=== PATIENT | male | born 1950 | race Caucasian/White ===

== ENCOUNTER 2024-02-02 00:37 | Emergency (ER) | payer OTHER ==
[2024-02-02 01:57] LABS: #Basophils 0.03 10x3/uL (0.0-0.2); #Eosinphils Less than 0.03 10x3/uL (0.0-0.7); %Basophils 0.3 % (0.0-1.0); %Eosinophils 0.1 % (0.0-10.0); %Lymphocytes 7.4 % (21.0-51.0); %Monocytes 6.6 % (0.0-10.0); %Neutrophils 85.3 % (42.0-75.0); Hematocrit 45.7 % (42.0-52.0); Hemoglobin 15.3 g/dL (14.0-18.0); Mean Corpuscular HGB CONC 33.5 g/dL (32.0-36.0); Mean Corpuscular Volume 101.6 fL (78.0-98.0); Mean Platelet Volume 10.3 fL (7.4-10.4); Platelet Count 200 10x3/uL (130-400); RBC Distribution Width 12.9 % (11.5-14.5)
[2024-02-02 02:50] LABS: ALT (SGPT) 18 U/L (8-55); AST (SGOT) 12 U/L (5-34); Albumin 4.3 g/dL (3.4-4.8); Alkaline Phosphatase 55 U/L (40-110); Anion Gap 13 mmol/L (10-20); BUN (Urea Nitrogen) 23 mg/dL (8.4-25.7); Bilirubin, Total 0.7 mg/dL (0.2-1.2); Calc. Creatinine Clearance 0 mL/min (70-130); Calcium 10.1 mg/dL (7.8-10.44); Carbon Dioxide 24 mmol/L (23-31); Chloride 108 mmol/L (98-107); Estimated GFR 42; Globulin 2.7 g/dL (2.4-3.5); Glucose 127 mg/dL (83-110); Lipase 24 U/L (8-78); Potassium 4.3 mmol/L (3.5-5.1); Sodium 141 mmol/L (136-145)
[2024-02-02] MEDS ORDERED: Ondansetron PF 4 MG/2 ML Vial ONE (03:51)
[2024-02-02] MEDS ORDERED: Morphine 4 MG/ML VIAL ONE ×2 (03:51→05:49)
[2024-02-02 06:19] LABS: Bacteria/HPF None Seen HPF (None Seen); Bilirubin Negative (Negative); Blood, Urine Negative (Negative); CAUTI Indications for Culture Pelvic or flank pain; Calcium Oxalate Crystals 3+ HPF (None Seen); Clarity Clear (Clear); Glucose, Urine (Dipstick) Normal (Negative); Ketone, Urine 10 mg/dL (Negative); Leukocyte 75 Leu/uL (Negative); Nitrite Negative (Negative); Protein, Urine (Dipstick) 20 mg/dL (Neg-Trace); Specific Gravity, Urine 1.026 (1.002-1.036); Squamous Epithelial None Seen HPF (0-3); Urobilinogen Normal mg/dL (Less than 2); pH, Urine 5.5 (5.0-9.0)
[2024-02-02 06:20] LABS: Urine Culture Reflex Yes Yes
[2024-02-02 06:31] LABS: Troponin I Less than 0.010 ng/mL (< 0.028)
[2024-02-02] MEDS ORDERED: Sodium Chloride 0.9% 100 ML ONE (06:46)
[2024-02-02] MEDS ORDERED: cefTRIAXone (ROCEPHIN) 2 GM VIAL ONE (06:46)
[2024-02-02] MEDS ORDERED: Iopamidol 370 76% 100 ML VIAL ONE (15:10)
== END 2024-02-02 08:35 | disposition home or self-care (01) ==
LOC: ERS 00:37
DX: N13.2 Hydronephrosis with renal and ureteral calculous obstruction (principal); I25.10 Atherosclerotic heart disease of native coronary artery without angina pectoris; N39.0 Urinary tract infection, site not specified
CPT/HCPCS: 36415; 36416; 74177; 80053; 81001; 83605; 83690; 84484; 85025; 87077; 87086; 93005; 96374; 96375; 96376; J0696; J2270; J2405; J3490; Q9967

== ENCOUNTER 2024-05-31 12:54 | Outpatient (CLI) | payer MEDICARE ==
[2024-05-31 14:05] LABS: #Basophils 0.05 10x3/uL (0.0-0.2); %Basophils 0.8 % (0.0-1.0); %Eosinophils 2.9 % (0.0-10.0); %Lymphocytes 27.4 % (21.0-51.0); %Monocytes 9.3 % (0.0-10.0); %Neutrophils 59.4 % (42.0-75.0); Hemoglobin 14.9 g/dL (14.0-18.0); Mean Corpuscular HGB CONC 33.9 g/dL (32.0-36.0); Mean Corpuscular Hemoglobin 33.6 pg (27.0-31.0); Mean Corpuscular Volume 99.3 fL (78.0-98.0); Mean Platelet Volume 9.8 fL (7.4-10.4); Platelet Count 191 10x3/uL (130-400); RBC Distribution Width 13.1 % (11.5-14.5); Red Blood Cell (RBC) Count 4.43 mill/uL (4.70-6.10)
[2024-05-31 14:28] LABS: ALT (SGPT) 23 U/L (8-55); AST (SGOT) 19 U/L (5-34); Albumin 4.2 g/dL (3.4-4.8); Alkaline Phosphatase 59 U/L (40-110); Anion Gap 9 mmol/L (10-20); BUN (Urea Nitrogen) 18 mg/dL (8.4-25.7); Bilirubin, Total 0.5 mg/dL (0.2-1.2); Calc. Creatinine Clearance 0 mL/min (70-130); Carbon Dioxide 26 mmol/L (23-31); Chloride 107 mmol/L (98-107); Estimated GFR 72; Globulin 2.8 g/dL (2.4-3.5); Glucose 93 mg/dL (83-110); Potassium 4.4 mmol/L (3.5-5.1); Sodium 138 mmol/L (136-145)
== END 2024-05-31 12:55 | disposition home or self-care (01) ==
LOC: LABBT 12:54
PROVIDERS: ATTEND Internal Medicine Cardiovascular Disease
DX: Z01.812 Encounter for preprocedural laboratory examination (principal); I25.10 Atherosclerotic heart disease of native coronary artery without angina pectoris
CPT/HCPCS: 80053; 85025

== ENCOUNTER 2024-06-07 05:40 | Inpatient (IN) | payer MEDICARE ==
[2024-06-07] MEDS ORDERED: fentaNYL 50 mcg/mL 1 mL Vial ONE (06:14)
[2024-06-07] MEDS ORDERED: Midazolam HCl 2 mg/2 ml Vial ONE (06:15)
[2024-06-07] MEDS ORDERED: Adenosine 6 mg (2 mL) VIAL ONE (06:15)
[2024-06-07] MEDS ORDERED: Nitroglycerin 50 MG/250 ML BOT 250 ML ONE (06:15)
[2024-06-07] MEDS ORDERED: Heparin 10,000 UNITS/ 10 ML VIAL ONE (06:15)
[2024-06-07] MEDS ORDERED: Verapamil 5 MG/2 ML VIAL ONE (06:15)
[2024-06-07] MEDS ORDERED: Communication Order-Pharmacy FS SCH (08:32)
[2024-06-07 12:12] LABS: #Basophils 0.03 10x3/uL (0.0-0.2); %Basophils 0.5 % (0.0-1.0); %Eosinophils 1.5 % (0.0-10.0); %Monocytes 7.7 % (0.0-10.0); Hematocrit 44.3 % (42.0-52.0); Hemoglobin 14.7 g/dL (14.0-18.0); Mean Corpuscular HGB CONC 33.2 g/dL (32.0-36.0); Mean Corpuscular Hemoglobin 33.3 pg (27.0-31.0); Mean Corpuscular Volume 100.5 fL (78.0-98.0); Mean Platelet Volume 9.8 fL (7.4-10.4); Platelet Count 170 10x3/uL (130-400); RBC Distribution Width 13.1 % (11.5-14.5); Red Blood Cell (RBC) Count 4.41 mill/uL (4.70-6.10)
[2024-06-07 12:26] LABS: Anion Gap 10 mmol/L (10-20); BUN (Urea Nitrogen) 16 mg/dL (8.4-25.7); Calc. Creatinine Clearance 78 mL/min (70-130); Calcium 9.1 mg/dL (7.8-10.44); Carbon Dioxide 24 mmol/L (23-31); Chloride 108 mmol/L (98-107); Estimated GFR 85; Glucose 87 mg/dL (83-110); Potassium 3.9 mmol/L (3.5-5.1); Sodium 138 mmol/L (136-145)
[2024-06-07 12:27] LABS: INR-International Normal Ratio 1.1; Prothrombin Time 13.8 sec (12.0-14.7)
[2024-06-07 12:37] LABS: Hemoglobin A1c 5.2 % (4.0-6.0)
[2024-06-07] MEDS: Carvedilol 3.125 MG TAB PO SCH (17:16)
[2024-06-08] MEDS ORDERED: CABG-Clindamycin/D5W 900 MG in Premix 1 BAG IVPB SCH (00:01)
[2024-06-08 04:43] LABS: ALT (SGPT) 17 U/L (8-55); AST (SGOT) 14 U/L (5-34); Albumin 3.7 g/dL (3.4-4.8); Alkaline Phosphatase 53 U/L (40-110); Anion Gap 10 mmol/L (10-20); BUN (Urea Nitrogen) 15 mg/dL (8.4-25.7); Bilirubin, Total 0.6 mg/dL (0.2-1.2); Calc. Creatinine Clearance 64 mL/min (70-130); Calcium 8.6 mg/dL (7.8-10.44); Carbon Dioxide 25 mmol/L (23-31); Cardiac Risk 4.6 (Less than 4.5); Chloride 108 mmol/L (98-107); Cholesterol 185 mg/dl (< 200 Desired); Estimated GFR 66; Globulin 2.4 g/dL (2.4-3.5); Glucose 96 mg/dL (83-110); HDL Cholesterol 40 mg/dL (>60 Neg Risk); LDL Cholesterol, Calculated 128 mg/dL; Potassium 4.2 mmol/L (3.5-5.1); Protein, Total 6.1 g/dL (5.8-8.1); Sodium 139 mmol/L (136-145); Triglycerides 83 mg/dL (Less than 150)
[2024-06-08] MEDS ORDERED: Lidocaine 1% MPF 2 ML VIAL ONE (05:49)
[2024-06-08] MEDS ORDERED: PHENYLEPHRINE-NS 100 MCG/ML 10 ML SYRINGE ONE ×2 (06:29→12:19)
[2024-06-08] MEDS ORDERED: Bupivacaine PF 0.5% 30 ML VIAL ONE (06:29)
[2024-06-08] MEDS ORDERED: Albumin 5% 500 ML ONE (06:29)
[2024-06-08] MEDS ORDERED: EPINEPHrine 1 MG/ML VIAL ONE ×2 (06:29→10:24)
[2024-06-08] MEDS ORDERED: Dexamethasone 4 mg/ml Vial ONE (06:29)
[2024-06-08] MEDS ORDERED: Heparin 10,000 UNITS/1 ML VIAL 30,000 UNITS in Sodium Chloride 0.9% 1,000 ML FS SCH (06:45)
[2024-06-08] MEDS ORDERED: Vecuronium 10 MG VIAL ONE (06:47)
[2024-06-08] MEDS ORDERED: fentaNYL PF 100 MCG/2 ML SYRINGE ONE (06:50)
[2024-06-08] MEDS ORDERED: PROPOFOL 20 ML ONE (06:50)
[2024-06-08] MEDS ORDERED: Midazolam HCl 2 mg/2 ml Vial ONE (06:51)
[2024-06-08] MEDS ORDERED: Clindamycin/D5W 900 mg/50 ml Premix Bag ONE (07:18)
[2024-06-08] MEDS ORDERED: Thrombin 5000 UNITS/5 ML VIAL ONE (07:40)
[2024-06-08] MEDS ORDERED: Magnesium 5 GM/10 ML Abboject SYRINGE ONE (07:40)
[2024-06-08] MEDS ORDERED: Heparin 5,000 UNITS/ML VIAL ONE (07:40)
[2024-06-08] MEDS ORDERED: Sodium Bicarb 50 mEq/50 ML VIAL ONE (07:40)
[2024-06-08] MEDS ORDERED: Cardioplegic Soln 1,000 ML BAG ONE (07:40)
[2024-06-08] MEDS ORDERED: Protamine Sulfate 250 MG/25 ML VIAL ONE (07:40)
[2024-06-08] MEDS ORDERED: Potassium Chloride 60 mEq (30 mL) VIAL ONE (07:40)
[2024-06-08] MEDS ORDERED: Mannitol 12.5 GM/50 ML ONE (07:40)
[2024-06-08] MEDS ORDERED: Vancomycin 1 GM VIAL ONE (07:40)
[2024-06-08] MEDS ORDERED: Aminocaproic Acid 5 GM/20 ML VIAL ONE (07:40)
[2024-06-08] MEDS ORDERED: Heparin 30,000 units/30 ml VIAL ONE (07:40)
[2024-06-08] MEDS ORDERED: Calcium Chloride 1 GM/10 ML Abboject SYRINGE ONE (07:40)
[2024-06-08] MEDS ORDERED: Lidocaine 2% PF 100 mg/5 ml Syringe ONE (07:40)
[2024-06-08] MEDS ORDERED: Milrinone 10 MG/10 ML VIAL ONE (08:40)
[2024-06-08] MEDS ORDERED: Papaverine 60 MG/2 ML VIAL ONE (09:06)
[2024-06-08] MEDS ORDERED: Rocuronium Bromide 10 MG/ML (10ML VIAL) ONE (09:55)
[2024-06-08] MEDS ORDERED: Bisacodyl 10 MG SUPP PR PRN (12:12)
[2024-06-08] MEDS ORDERED: NOREPINEPHRINE 8 MG/250 ML-D5W 250 ML IVPB PRN (12:12)
[2024-06-08] MEDS ORDERED: Promethazine HCl 25 MG/ML VIAL IM PRN (12:12)
[2024-06-08] MEDS ORDERED: Nitroglycerin 50 MG/250 ML BOT 250 ML IVPB PRN (12:12)
[2024-06-08] MEDS ORDERED: Potassium Chloride 20 MEQ (100 mL) BAG IVPB PRN (12:12)
[2024-06-08] MEDS ORDERED: Mag-Al 1200 mg/1200 mg/30 ML UDCUP PO PRN (12:12)
[2024-06-08] MEDS ORDERED: Acetaminophen 325 MG TAB PO PRN (12:12)
[2024-06-08] MEDS ORDERED: traMADol HCl 50 MG TAB PO PRN (12:12)
[2024-06-08] MEDS ORDERED: niCARdipine 25 MG in Sodium Chloride 0.9% 250 ML 250 ML IVPB PRN (12:12)
[2024-06-08] MEDS ORDERED: hydrALAZINE 20 MG/ML VIAL SLOW IVP PRN (12:12)
[2024-06-08] MEDS ORDERED: EPINEPHrine 4 MG in Dextrose 5% in Water 250 ML IV SCH (12:15)
[2024-06-08 12:58] LABS: Actual Bicarbonate (HCO3a) 17.4 mEq/L (22-28); Base Excess (BEa) -7.7 mEq/L (-2.0 to +3.0); CO2 Tension 33.8 mmHg (35.0-45.0); Calcium, Ionized (arterial) 1.05 mmol/L (1.12-1.30); Carboxyhemoglobin (COHb) 0.3 gm% (0.0-3.0); Hematocrit-ABG 34 % (42.0-52.0); Hemoglobin (Hb) 11.7 g/dL (14.0-18.0); O2 Tension (PaO2), arterial 222.6 mmHg (> 70.0); Potassium - ABG Lab 4.22 mmol/L (3.70-5.30); pH, Arterial 7.329 (7.35-7.45)
[2024-06-08] MEDS ORDERED: Dextrose 50% Abboject 50 ML SYRINGE SLOW IVP PRN (13:00)
[2024-06-08] MEDS ORDERED: Glucagon 1 MG/ML KIT SC PRN (13:00)
[2024-06-08] MEDS ORDERED: Insulin Reg, Human 100 UNITS in Sodium Chloride 0.9% 100 ML IVPB SCH (13:00)
[2024-06-08] MEDS ORDERED: INSULIN REGULAR IN 0.9 % NACL 100 UNITS in Premix 1 BAG IVPB SCH (13:00)
[2024-06-08] MEDS ORDERED: Dextrose 5% in Water 1,000 ML IV PRN (13:00)
[2024-06-08 13:01] LABS: Puncture Site ARTLINE
[2024-06-08] MEDS: Morphine 4 MG/ML VIAL ONE (13:14)
[2024-06-08] MEDS: Insulin Regular, Human 100 UNIT/ML 10 ML VIAL SC PRN (13:27)
[2024-06-08] MEDS: Magnesium 2 GM/50 ML(in water) 2 GM in Premix 1 BAG IVPB SCH (13:28)
[2024-06-08] MEDS: NS 0.9% w/ 20 MEQ KCL 1,000 ML IV SCH (13:28)
[2024-06-08 13:37] LABS: Anion Gap 12 mmol/L (10-20); BUN (Urea Nitrogen) 14 mg/dL (8.4-25.7); Calc. Creatinine Clearance 81 mL/min (70-130); Calcium 7.9 mg/dL (7.8-10.44); Carbon Dioxide 16 mmol/L (23-31); Chloride 114 mmol/L (98-107); Estimated GFR 88; Glucose 164 mg/dL (83-110); Potassium 4.6 mmol/L (3.5-5.1); Sodium 137 mmol/L (136-145)
[2024-06-08] MEDS: Post-Op Insulin Drip Protocol IVPB ONE (13:47)
[2024-06-08 13:49] LABS: PTT 31.9 sec (22.9-36.1)
[2024-06-08 13:53] LABS: INR-International Normal Ratio 1.5; Prothrombin Time 18.1 sec (12.0-14.7)
[2024-06-08 13:58] LABS: #Basophils 0.04 10x3/uL (0.0-0.2); %Basophils 0.2 % (0.0-1.0); %Eosinophils 0.3 % (0.0-10.0); %Lymphocytes 9.6 % (21.0-51.0); %Monocytes 8.7 % (0.0-10.0); %Neutrophils 80.6 % (42.0-75.0); Hematocrit 35.1 % (42.0-52.0); Hemoglobin 11.9 g/dL (14.0-18.0); Mean Corpuscular HGB CONC 33.9 g/dL (32.0-36.0); Mean Corpuscular Hemoglobin 33.4 pg (27.0-31.0); Mean Corpuscular Volume 98.6 fL (78.0-98.0); Mean Platelet Volume 10.3 fL (7.4-10.4); Platelet Count 156 10x3/uL (130-400); RBC Distribution Width 12.9 % (11.5-14.5); Red Blood Cell (RBC) Count 3.56 mill/uL (4.70-6.10)
[2024-06-08] MEDS: Ipratropium/Albuterol 3 ML NEB NEB SCH (14:32)
[2024-06-08] MEDS: Sodium Bicarb 50 MEQ/50 ML Abboject 8.4% SYRINGE ONE (14:45)
[2024-06-08] MEDS: Albumin 5% 12.5 GM (250 mL) BOT IVPB PRN ×2 (14:46→22:20)
[2024-06-08] MEDS: Clindamycin/D5W 900 MG in Premix 1 BAG IVPB SCH (14:53)
[2024-06-08] MEDS: Sodium Bicarb 50 MEQ/50 ML Abboject 8.4% SYRINGE IVP SCH (15:08)
[2024-06-08 16:07] LABS: Actual Bicarbonate (HCO3a) 21.3 mEq/L (22-28); CO2 Tension 39.5 mmHg (35.0-45.0); Calcium, Ionized (arterial) 1.07 mmol/L (1.12-1.30); Carboxyhemoglobin (COHb) 0.2 gm% (0.0-3.0); Hematocrit-ABG 31 % (42.0-52.0); Hemoglobin (Hb) 10.5 g/dL (14.0-18.0); O2 Tension (PaO2), arterial 87.3 mmHg (> 70.0); Potassium - ABG Lab 4.08 mmol/L (3.70-5.30); pH, Arterial 7.349 (7.35-7.45)
[2024-06-08] MEDS: traMADol HCl 50 MG TAB PO PRN (16:24)
[2024-06-08] MEDS: Morphine 2 MG/ML VIAL SLOW IVP PRN (17:05)
[2024-06-08] MEDS: fentaNYL 50 mcg/mL 1 mL Vial SLOW IVP PRN ×2 (18:51→20:41)
[2024-06-08 19:33] LABS: Hematocrit 28.6 % (42.0-52.0); Hemoglobin 9.7 g/dL (14.0-18.0)
[2024-06-08 19:41] LABS: Potassium 4.1 mmol/L (3.5-5.1)
[2024-06-08] MEDS: Atorvastatin Calcium 20 MG TAB PO SCH (20:41)
[2024-06-08] MEDS: Famotidine/PF 20 mg/2ml Vial SLOW IVP SCH (20:41)
[2024-06-08] MEDS: Ondansetron PF 4 MG/2 ML Vial IVP PRN (21:48)
[2024-06-09] MEDS: Albumin 5% 12.5 GM (250 mL) BOT IVPB SCH (00:40)
[2024-06-09 03:12] LABS: #Basophils Less than 0.03 10x3/uL (0.0-0.2); #Eosinophils Less than 0.03 10x3/uL (0.0-0.7); %Lymphocytes 5.4 % (21.0-51.0); %Monocytes 10.1 % (0.0-10.0); %Neutrophils 84.3 % (42.0-75.0); Hematocrit 24.1 % (42.0-52.0); Hemoglobin 8.1 g/dL (14.0-18.0); Mean Corpuscular HGB CONC 33.6 g/dL (32.0-36.0); Mean Corpuscular Volume 101.3 fL (78.0-98.0); Mean Platelet Volume 10.2 fL (7.4-10.4); Platelet Count 131 10x3/uL (130-400); RBC Distribution Width 13.2 % (11.5-14.5); Red Blood Cell (RBC) Count 2.38 mill/uL (4.70-6.10)
[2024-06-09 03:22] LABS: Anion Gap 11 mmol/L (10-20); BUN (Urea Nitrogen) 17 mg/dL (8.4-25.7); Calc. Creatinine Clearance 85 mL/min (70-130); Calcium 7.4 mg/dL (7.8-10.44); Carbon Dioxide 21 mmol/L (23-31); Chloride 112 mmol/L (98-107); Estimated GFR 90; Glucose 119 mg/dL (83-110); Magnesium 2.2 mg/dL (1.6-2.6); Sodium 140 mmol/L (136-145)
[2024-06-09 03:23] LABS: INR-International Normal Ratio 1.5; PTT 35.4 sec (22.9-36.1); Prothrombin Time 18.2 sec (12.0-14.7)
[2024-06-09 03:58] LABS: Phosphorus 2.6 mg/dL (2.3-4.7)
[2024-06-09 04:01] LABS: ALT (SGPT) 11 U/L (8-55); AST (SGOT) 21 U/L (5-34); Albumin 3.9 g/dL (3.4-4.8); Alkaline Phosphatase 27 U/L (40-110); Bilirubin, Direct 0.5 mg/dL (0.1-0.3); Bilirubin, Total 1.2 mg/dL (0.2-1.2); Protein, Total 1.2 g/dL (5.8-8.1)
[2024-06-09 07:57] LABS: ALV-art Gradient 148.525 mmHg (0-20); Puncture Site Arterial Line
[2024-06-09] MEDS: Aspirin Chewable 81 MG TAB PO SCH (09:16)
[2024-06-09] MEDS: Magnesium 2 GM/50 ML(in water) 2 GM in Premix 1 BAG IVPB SCH (09:17)
[2024-06-09 12:07] LABS: #Basophils Less than 0.03 10x3/uL (0.0-0.2); #Eosinophils Less than 0.03 10x3/uL (0.0-0.7); %Basophils 0.1 % (0.0-1.0); %Lymphocytes 4.9 % (21.0-51.0); %Neutrophils 84.5 % (42.0-75.0); Hematocrit 31.2 % (42.0-52.0); Hemoglobin 10.5 g/dL (14.0-18.0); Mean Corpuscular HGB CONC 33.7 g/dL (32.0-36.0); Mean Corpuscular Volume 98.1 fL (78.0-98.0); Mean Platelet Volume 10.2 fL (7.4-10.4); Platelet Count 155 10x3/uL (130-400); RBC Distribution Width 14.4 % (11.5-14.5); Red Blood Cell (RBC) Count 3.18 mill/uL (4.70-6.10)
[2024-06-09] MEDS ORDERED: Insulin Glargine 30 UNITS/0.3 ML VIAL SC PRN (12:46)
[2024-06-09 13:09] LABS: Anion Gap 12 mmol/L (10-20); BUN (Urea Nitrogen) 21 mg/dL (8.4-25.7); Calc. Creatinine Clearance 84 mL/min (70-130); Calcium 7.9 mg/dL (7.8-10.44); Carbon Dioxide 19 mmol/L (23-31); Chloride 109 mmol/L (98-107); Estimated GFR 83; Glucose 126 mg/dL (83-110); Potassium 4.1 mmol/L (3.5-5.1); Sodium 136 mmol/L (136-145)
[2024-06-09] MEDS: Guaifenesin DM 100-10/5 ML UDCUP PO PRN (20:29)
[2024-06-10 04:57] LABS: Anion Gap 11 mmol/L (10-20); BUN (Urea Nitrogen) 26 mg/dL (8.4-25.7); Calc. Creatinine Clearance 83 mL/min (70-130); Calcium 8.2 mg/dL (7.8-10.44); Carbon Dioxide 22 mmol/L (23-31); Chloride 104 mmol/L (98-107); Estimated GFR 82; Glucose 123 mg/dL (83-110); Magnesium 2.6 mg/dL (1.6-2.6); Potassium 4.1 mmol/L (3.5-5.1); Sodium 133 mmol/L (136-145)
[2024-06-10 05:10] LABS: #Basophils Less than 0.03 10x3/uL (0.0-0.2); #Eosinophils Less than 0.03 10x3/uL (0.0-0.7); %Basophils 0.1 % (0.0-1.0); %Lymphocytes 5.7 % (21.0-51.0); %Monocytes 9.2 % (0.0-10.0); %Neutrophils 84.2 % (42.0-75.0); Hematocrit 28.5 % (42.0-52.0); Hemoglobin 9.7 g/dL (14.0-18.0); Mean Corpuscular Hemoglobin 33.4 pg (27.0-31.0); Mean Corpuscular Volume 98.3 fL (78.0-98.0); Mean Platelet Volume 10.4 fL (7.4-10.4); Platelet Count 139 10x3/uL (130-400); RBC Distribution Width 14.5 % (11.5-14.5)
[2024-06-10] MEDS ORDERED: Iopamidol 370 76% 100 ML VIAL ONE (11:12)
[2024-06-10] MEDS: Furosemide 40 MG (4 mL) VIAL SLOW IVP SCH (11:43)
[2024-06-10] MEDS: Furosemide 20 MG (2 mL) VIAL SLOW IVP SCH (14:51)
[2024-06-10] MEDS: Carvedilol 3.125 MG TAB PO SCH (17:04)
[2024-06-10] MEDS: Bisacodyl 5 MG TAB PO PRN (20:32)
[2024-06-11 03:51] LABS: #Basophils Less than 0.03 10x3/uL (0.0-0.2); #Eosinophils Less than 0.03 10x3/uL (0.0-0.7); %Basophils 0.1 % (0.0-1.0); %Eosinophils 0.1 % (0.0-10.0); %Lymphocytes 6.4 % (21.0-51.0); %Monocytes 9.3 % (0.0-10.0); %Neutrophils 83.5 % (42.0-75.0); Hematocrit 28.1 % (42.0-52.0); Hemoglobin 9.6 g/dL (14.0-18.0); Mean Corpuscular HGB CONC 34.2 g/dL (32.0-36.0); Mean Corpuscular Hemoglobin 32.5 pg (27.0-31.0); Mean Corpuscular Volume 95.3 fL (78.0-98.0); Mean Platelet Volume 10.4 fL (7.4-10.4); Platelet Count 148 10x3/uL (130-400); RBC Distribution Width 13.7 % (11.5-14.5); Red Blood Cell (RBC) Count 2.95 mill/uL (4.70-6.10)
[2024-06-11 04:10] LABS: Chloride 100 mmol/L (98-107); Critical Call Chemistry NUR.BC10@0410
[2024-06-11 04:19] LABS: Anion Gap 12 mmol/L (10-20); BUN (Urea Nitrogen) 30 mg/dL (8.4-25.7); Calc. Creatinine Clearance 73 mL/min (70-130); Calcium 8.3 mg/dL (7.8-10.44); Carbon Dioxide 26 mmol/L (23-31); Estimated GFR 72; Glucose 128 mg/dL (83-110); Magnesium 2.2 mg/dL (1.6-2.6); Phosphorus 1.4 mg/dL (2.3-4.7); Potassium 3.7 mmol/L (3.5-5.1); Sodium 134 mmol/L (136-145)
[2024-06-11] MEDS ORDERED: Electrolyte Replacement Protocol 1 EACH FS SCH ×2 (04:30)
[2024-06-11] MEDS: PHOS-NAK 1 PKT PACK PO SCH (05:13)
[2024-06-11] MEDS ORDERED: Potassium Phosphate 30 MMOL in Sodium Chloride 0.9% 250 ML 250 ML IVPB SCH (06:15)
[2024-06-11] MEDS: Senokot S 8.6-50 MG TAB PO SCH (08:05)
[2024-06-11] MEDS: Tamsulosin HCl 0.4 MG CAP PO SCH (08:05)
[2024-06-11 13:16] LABS: Anion Gap 14 mmol/L (10-20); BUN (Urea Nitrogen) 28 mg/dL (8.4-25.7); Calc. Creatinine Clearance 72 mL/min (70-130); Calcium 8.5 mg/dL (7.8-10.44); Carbon Dioxide 27 mmol/L (23-31); Chloride 98 mmol/L (98-107); Estimated GFR 71; Glucose 126 mg/dL (83-110); Phosphorus 1.2 mg/dL (2.3-4.7); Potassium 3.6 mmol/L (3.5-5.1); Sodium 135 mmol/L (136-145)
[2024-06-11] MEDS: Potassium Phosphate 30 MMOL in Sodium Chloride 0.9% 250 ML 250 ML IVPB SCH (16:52)
[2024-06-11] MEDS: Zolpidem Tartrate 5 MG TAB PO PRN (20:55)
[2024-06-11 23:26] LABS: Phosphorus 2.8 mg/dL (2.3-4.7)
[2024-06-12 04:01] LABS: #Basophils Less than 0.03 10x3/uL (0.0-0.2); %Basophils 0.2 % (0.0-1.0); %Eosinophils 2.4 % (0.0-10.0); %Lymphocytes 11.7 % (21.0-51.0); %Monocytes 12.2 % (0.0-10.0); %Neutrophils 73.1 % (42.0-75.0); Hematocrit 28.1 % (42.0-52.0); Hemoglobin 9.5 g/dL (14.0-18.0); Mean Corpuscular HGB CONC 33.8 g/dL (32.0-36.0); Mean Corpuscular Hemoglobin 32.8 pg (27.0-31.0); Mean Corpuscular Volume 96.9 fL (78.0-98.0); Mean Platelet Volume 10.4 fL (7.4-10.4); Platelet Count 181 10x3/uL (130-400); RBC Distribution Width 13.5 % (11.5-14.5)
[2024-06-12 04:19] LABS: Anion Gap 12 mmol/L (10-20); BUN (Urea Nitrogen) 26 mg/dL (8.4-25.7); Calc. Creatinine Clearance 84 mL/min (70-130); Calcium 8.5 mg/dL (7.8-10.44); Carbon Dioxide 28 mmol/L (23-31); Chloride 103 mmol/L (98-107); Estimated GFR 85; Glucose 105 mg/dL (83-110); Potassium 3.6 mmol/L (3.5-5.1); Sodium 139 mmol/L (136-145)
[2024-06-12 04:22] LABS: Phosphorus 2.8 mg/dL (2.3-4.7)
[2024-06-12] MEDS: Carvedilol 6.25 MG TAB PO SCH (09:29)
[2024-06-12] MEDS: Furosemide 20 MG TAB PO SCH (09:30)
[2024-06-12] MEDS: Magnesium 2 GM/50 ML(in water) 2 GM in Premix 1 BAG IVPB SCH (09:33)
[2024-06-12] MEDS: Dorzolamide HCl 2% Ophth (10 mL) Bottle EA EYE SCH (09:33)
[2024-06-12] MEDS: Latanoprost 0.005% Ophth Soln 2.5 ml Bottle EA EYE SCH (09:33)
[2024-06-15 04:48] LABS: #Basophils 0.03 10x3/uL (0.0-0.2); %Basophils 0.3 % (0.0-1.0); %Eosinophils 5.4 % (0.0-10.0); %Lymphocytes 15.3 % (21.0-51.0); %Neutrophils 67.3 % (42.0-75.0); Hematocrit 29.2 % (42.0-52.0); Hemoglobin 9.7 g/dL (14.0-18.0); Mean Corpuscular HGB CONC 33.2 g/dL (32.0-36.0); Mean Corpuscular Hemoglobin 32.1 pg (27.0-31.0); Mean Corpuscular Volume 96.7 fL (78.0-98.0); Mean Platelet Volume 9.6 fL (7.4-10.4); Platelet Count 279 10x3/uL (130-400); RBC Distribution Width 13.2 % (11.5-14.5); Red Blood Cell (RBC) Count 3.02 mill/uL (4.70-6.10)
[2024-06-15 05:53] LABS: Anion Gap 13 mmol/L (10-20); BUN (Urea Nitrogen) 20 mg/dL (8.4-25.7); Calc. Creatinine Clearance 67 mL/min (70-130); Calcium 8.4 mg/dL (7.8-10.44); Carbon Dioxide 25 mmol/L (23-31); Chloride 105 mmol/L (98-107); Estimated GFR 65; Glucose 101 mg/dL (83-110); Potassium 4.2 mmol/L (3.5-5.1); Sodium 139 mmol/L (136-145)
[2024-06-15 10:26] VITALS: BMI 25.8
[2024-06-15] MEDS: Enoxaparin 80 MG (0.8 mL) SYRINGE ONE ×4 (11:25→11:35)
[2024-06-15] MEDS: Ipratropium/Albuterol 3 ML NEB ONE (11:25)
[2024-06-15] MEDS: Potassium Chloride 20 MEQ TAB ONE ×2 (11:26→11:28)
[2024-06-15] MEDS ORDERED: Ipratropium/Albuterol 3 ML NEB ONE (13:34)
[2024-06-15 13:46] VITALS: BMI 25.7
[2024-06-15 17:13] VITALS: BP 115/76; TEMP 98.2
[2024-06-15] MEDS ORDERED: Metoprolol Tartrate 25 MG TAB PO SCH (21:00)
[2024-06-15] MEDS ORDERED: Apixaban 5 MG TAB PO SCH (21:00)
[2024-06-22] MEDS ORDERED: Apixaban 5 MG TAB PO SCH (21:00)
== END 2024-06-15 16:30 | disposition home or self-care (01) | DRG 233 ==
LOC: SDC 05:40 → 2NO 11:34 → OBSVTOIN 11:34 → CCU 06-08 06:20 → PCU 06-10 15:42
PROVIDERS: ADMIT Internal Medicine Cardiovascular Disease; ATTEND Internal Medicine Cardiovascular Disease
PROC: 4A023N7 Measurement of Cardiac Sampling and Pressure, Left Heart, Percutaneous Approach (ICD-10-PCS; principal; 2024-06-07)
PROC: B2111ZZ Fluoroscopy of Multiple Coronary Arteries using Low Osmolar Contrast (ICD-10-PCS; 2024-06-07)
PROC: B2151ZZ Fluoroscopy of Left Heart using Low Osmolar Contrast (ICD-10-PCS; 2024-06-07)
PROC: 021009W Bypass Coronary Artery, One Artery from Aorta with Autologous Venous Tissue, Open Approach (ICD-10-PCS; 2024-06-08)
PROC: 02100Z9 Bypass Coronary Artery, One Artery from Left Internal Mammary, Open Approach (ICD-10-PCS; 2024-06-08)
PROC: 06BQ4ZZ Excision of Left Saphenous Vein, Percutaneous Endoscopic Approach (ICD-10-PCS; 2024-06-08)
PROC: 02L70CK Occlusion of Left Atrial Appendage with Extraluminal Device, Open Approach (ICD-10-PCS; 2024-06-08)
PROC: 5A1221Z Performance of Cardiac Output, Continuous (ICD-10-PCS; 2024-06-08)
PROC: B24BZZ4 Ultrasonography of Heart with Aorta, Transesophageal (ICD-10-PCS; 2024-06-08)
PROC: 6A551Z2 Pheresis of Platelets, Multiple (ICD-10-PCS; 2024-06-08)
PROC: 4A133R1 Monitoring of Arterial Saturation, Peripheral, Percutaneous Approach (ICD-10-PCS; 2024-06-08)
PROC: 3E033XZ Introduction of Vasopressor into Peripheral Vein, Percutaneous Approach (ICD-10-PCS; 2024-06-08)
PROC: 30233N1 Transfusion of Nonautologous Red Blood Cells into Peripheral Vein, Percutaneous Approach (ICD-10-PCS; 2024-06-09)
DX: I21.4 Non-ST elevation (NSTEMI) myocardial infarction (principal); I26.99 Other pulmonary embolism without acute cor pulmonale; I50.30 Unspecified diastolic (congestive) heart failure; I97.89 Other postprocedural complications and disorders of the circulatory system, not elsewhere classified; I25.10 Atherosclerotic heart disease of native coronary artery without angina pectoris; I35.1 Nonrheumatic aortic (valve) insufficiency; R00.0 Tachycardia, unspecified; Z79.899 Other long term (current) drug therapy; Z88.0 Allergy status to penicillin; E83.39 Other disorders of phosphorus metabolism
CPT/HCPCS: 36415; 36416; 36430; 71045; 71275; 80048; 80053; 80061; 80076; 82805; 83036; 83735; 84100; 85025; 85610; 85730; 86850; 86900; 86901; 93005; 93010; 93306; 93458; 93798; 94002; 94640; 99152; A4311; A4648; C1751; C1769; C1889; C1894; J0153; J0171; J0665; J1100; J1642; J1644; J1650; J1815; J1940; J2003; J2150; J2250; J2260; J2272; J2405; J2440; J2704; J2720; J3010; J3370; J3475; J3480; J3490; J7050; J7620; P9016; P9035; P9045; Q9967; S0017